=== PATIENT | female | born 1955 | race Caucasian/White ===

== ENCOUNTER → 2016-11-20 | Outpatient (CLI) | payer BC ==
[~2016-11-20] MED LIST: ASPI81TA28 PO; CLR10 PO; MULT-506 PO
== END | disposition home or self-care (01) ==
LOC: C.PAPS 14:52
PROVIDERS: ATTEND Obstetrics & Gynecology
DX: Z01.411 Encounter for gynecological examination (general) (routine) with abnormal findings (principal); R87.616 Satisfactory cervical smear but lacking transformation zone; Z87.42 Personal history of other diseases of the female genital tract

== ENCOUNTER → 2017-02-19 | Outpatient (CLI) | payer BC ==
[~2017-02-19] MED LIST changes: +CALC-354 PO; +MELO15TA4 PO
--- NOTE | 2017-02-19 14:53 | MAMMOGRAPHY REPORT ---
BILATERAL DIGITAL SCREENING MAMMOGRAM TOMOSYNTHESIS WITH CAD: 02/19/2017 CLINICAL HISTORY: . Routine screening. Patient has no complaints. TECHNIQUE: Breast tomosynthesis in addition to standard 2D mammography was performed. Current study was also evaluated with a Computer Aided Detection (CAD) system. COMPARISON: Comparison is made to exams dated: 02/17/2016 mammogram, 02/13/2015 mammogram, 02/12/2014 misael mogram, 02/09/2013 mammogram, 02/09/2012 mammogram, and 04/14/2011 ultrasound - [facility] er. BREAST COMPOSITION: The tissue of both breasts is heterogeneously dense, which may obscure small ma sses. FINDINGS: No suspicious masses, calcifications, or areas of architectural distortion are noted in e ither breast. There has been no significant interval change compared to prior exams. Bilateral asym metries and bilateral benign-appearing calcifications are not significantly changed. IMPRESSION: ACR BI-RADS CATEGORY 2: BENIGN There is no mammographic evidence of malignancy. A 1 year screening mammogram is recommended. The p atient will receive written notification of the results. Approximately 10% of breast cancers are not detected with mammography. A negative mammographic repor t should not delay biopsy if a clinically suggestive mass is present. Estela Wheeler M.D. ah/:02/19/2017 14:24:03 Draw Fire Operator: Corinne OREILLY)([place]), [facility] letter sent: Normal 1/2 BI-RADS Code: ACR BI-RADS Category 2: Benign
== END | disposition home or self-care (01) ==
LOC: C.MAMM 10:50
PROVIDERS: ATTEND Obstetrics & Gynecology
DX: Z12.31 Encounter for screening mammogram for malignant neoplasm of breast (principal)

== ENCOUNTER 2017-09-12 10:03 | Emergency (ER) | payer OTHER, BC ==
[~2017-09-12] VITALS: Ht 157.5 cm; Wt 58.0 kg
[~2017-09-12 10:03] MED LIST changes: -CALC-354 PO; -MELO15TA4 PO
[2017-09-12 10:23] VITALS: TEMP 36.8; Ht 157.5 cm; Wt 58.0 kg
[2017-09-12] MEDS ORDERED: CALC-354 PO (10:40)
[2017-09-12] MEDS ORDERED: MELO15TA4 PO (10:40)
--- NOTE | 2017-09-12 11:14 | DIAGNOSTIC IMAGING REPORT ---
LEFT KNEE 3 VIEWS CLINICAL HISTORY: Fall with left knee pain. FINDINGS: AP, crosstable lateral, and sunrise views of the left knee are obtained. No prior studies are available for comparison at the time of dictation. The skeletal structures are osteopenic. No fracture is seen. There is mild tricompartmental degenerative joint space narrowing. There are tiny patellar enthesophytes. No joint effusion is identified. Mild prepatellar soft tissue swelling is observed. IMPRESSION: Mild prepatellar soft tissue swelling with no radiographic evidence of left knee fracture. Electronically signed by: Chevy Jesus M.D. 09/12/2017 11:13 AM Dictated Date/Time: 09/12/2017 11:12 AM
[2017-09-12 11:32] VITALS: BP 159/94; PULSE 76; O2SAT 96
--- NOTE | 2017-09-12 16:25 | EMERGENCY ROOM VISIT NOTE ---
ED Visit Note First contact with patient: 10:26 Chief Complaint: Left knee pain. History of Present Illness: Ms. Yun is a 62-year-old white female who ambulates into the ED complaining of anterior left knee pain. 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 The client started falling backwards and an attempt to assist his fall she fell onto her left knee. She reports at the time of the injury she was not experiencing any pain but over the last 24 hours she has started having increasing pain. She did go to work today and was referred to the ED by her employer. Currently she is complaining of anterior knee pain just medial to the patella. She describes this as an achy sensation. She rates her discomfort 2/10. Her pain is nonradiating. Her pain worsens with ambulation and stair climbing. She has not identified any alleviating factors related to the pain. She has not taken any medications for pain prior to arrival at the hospital. She denies any associated symptoms including back pain, hip pain, thigh pain, lower leg pain, ankle/foot pain, leg weakness/numbness/tingling. Additionally she denies any previous surgeries or injuries to the left knee. Review of Systems: As noted above in history of present illness. Past Medical History: Seasonal allergies. Current Medications: Aspirin, multivitamins, Claritin, calcium, mobic. Allergies to Medications: Patient denies. Social History: Patient is currently employed; she feels safe in her home environment; she denies tobacco use. Physical Examination: Vital Signs: Date Time Temp Pulse Resp B/P (MAP) Pulse Ox O2 Delivery O2 Flow Rate FiO2 09/12/17 11:32 76 18 159/94 96 09/12/17 10:23 36.8 65 18 160/90 94 Room Air GENERAL: 62-year-old female in mild distress due to pain, nontoxic-appearing, afebrile and hemodynamically stable. NEUROLOGICAL: Awake, alert and oriented to person, place and time. Answering questions appropriately and following commands. Normal gait. Good hand eye coordination. No focal motor sensory deficits. SKIN: Warm, dry and pink. No soft tissue eruptions or trauma noted. LEFT LOWER EXTREMITY: No gross bony deformity. No shortening or malrotation. No tenderness in the hip, thigh, lower leg, ankle or foot. Mild tenderness to the area just medial to the patella over the anterior knee. There is no bony deformity or swelling in this area. Directly over the patella there is some mild swelling but no bony deformity or crepitus. Full range of motion of the knee. No laxity of the collateral or cruciate ligaments. Negative is Tomy' s test. 4/5 muscle strength in all movements of the knees and ankles. Throughout the lower leg and foot the skin was warm and pink and capillary refill is brisk. She is able to distinguish light sensations through all dermatomes. ED Course: Patient is assessed as noted above. Patient's medication list was reviewed. Patient was offered pain medication and refused. Left knee x-rays: Were read by myself and the radiologist showing no acute fractures or dislocations. Mild anterior knee swelling. Patient was educated about today's findings and instructed on her treatment plan ; she verbalizes understanding and agreement with this plan. Clinical Impression: Left knee pain. Work related injury. Disposition: Patient discharged home in stable condition; prior to departure she was reassessed and subjectively reported she was pain-free. Plan: Patient is encouraged use ibuprofen or acetaminophen as needed for pain. Patient was encouraged use ice for pain and swelling. Patient was encouraged to follow-up with Workmen's Compensation as needed for recheck. Patient was encouraged return to work. Patient was encouraged to return to the ED for worsening swelling, uncontrolled pain, leg weakness/numbness/tingling or any new/concerning symptoms.
== END 2017-09-12 11:33 | disposition home or self-care (01) ==
LOC: C.EDB 10:04 → C.EDD 11:33
DX: M25.562 Pain in left knee (principal); W18.39XA Other fall on same level, initial encounter; Y99.0 Civilian activity done for income or pay; Z79.82 Long term (current) use of aspirin; Z79.1 Long term (current) use of non-steroidal anti-inflammatories (NSAID)

== ENCOUNTER → 2017-11-24 | Outpatient (CLI) | payer BC ==
[~2017-11-24] MED LIST changes: +CALC-354 PO; +MELO-84 PO
== END | disposition home or self-care (01) ==
LOC: C.PAPS 13:28
PROVIDERS: ATTEND Obstetrics & Gynecology
DX: Z01.419 Encounter for gynecological examination (general) (routine) without abnormal findings (principal)

== ENCOUNTER → 2018-02-23 | Outpatient (CLI) | payer BC ==
--- NOTE | 2018-02-23 15:25 | MAMMOGRAPHY REPORT ---
BILATERAL DIGITAL SCREENING MAMMOGRAM TOMOSYNTHESIS WITH CAD: 02/23/2018 CLINICAL HISTORY: Routine screening. Patient has no complaints. TECHNIQUE: Breast tomosynthesis in addition to standard 2D mammography was performed. Current study was also evaluated with a Computer Aided Detection (CAD) system. COMPARISON: Comparison is made to exams dated: 02/19/2017 mammogram, 02/17/2016 mammogram, 02/13/2015 misael mogram, 02/12/2014 mammogram, 02/09/2013 mammogram, and 02/09/2012 mammogram - [facility] . BREAST COMPOSITION: The tissue of both breasts is heterogeneously dense, which may obscure small mas ses. FINDINGS: No suspicious masses, calcifications, or areas of architectural distortion are noted in ei ther breast. There has been no significant interval change compared to prior exams. Bilateral asymme tries and bilateral benign-appearing calcifications are not significantly changed. IMPRESSION: ACR BI-RADS CATEGORY 2: BENIGN There is no mammographic evidence of malignancy. A 1 year screening mammogram is recommended. The pa tient will receive written notification of the results. Approximately 10% of breast cancers are not detected with mammography. A negative mammographic report should not delay biopsy if a clinically suggestive mass is present. Estela Wheeler M.D. ah/:02/23/2018 12:27:35 Stone Driller Helper: Rachel OREILLY)([place]), [facility] letter sent: Normal 1/2 BI-RADS Code: ACR BI-RADS Category 2: Benign
== END | disposition home or self-care (01) ==
LOC: C.MAMM 11:01
PROVIDERS: ATTEND Family Medicine
DX: Z12.31 Encounter for screening mammogram for malignant neoplasm of breast (principal)